=== PATIENT | male | born 1980 | race Caucasian/White ===

== ENCOUNTER 2017-05-16 18:02 | Emergency (ER) | payer OTHER ==
[~2017-05-16] VITALS: Ht 175.3 cm; Wt 75.0 kg
[2017-05-16] MEDS ORDERED: LISINOPRIL10 MG PO (18:34)
[2017-05-16] MEDS ORDERED: NORVASC10 M1 PO (18:35)
[2017-05-16] MEDS ORDERED: LEVOTHYROXIN125 MC1 PO (18:35)
[2017-05-16] MEDS ORDERED: WELLBUTRIN200 M1 PO (18:35)
[2017-05-16] MEDS ORDERED: ZYLOPRIM100 MG PO (18:36)
[2017-05-16] MEDS ORDERED: ZETIA10 MG PO (18:37)
[2017-05-16 18:40] LABS: HEMATOCRIT 33.9 % (39.0-50.0); HEMOGLOBIN 11.1 g/dl (14.0-18.0); IMMATURE GRANULOCYTES 0.2 % (0.0-1.0); MEAN CORPUSCULAR HGB 31.1 pG CALC (26.0-32.0); MEAN CORPUSCULAR HGB CONC 32.7 g/L CALC (32.0-36.0); NEUT# 6.58 thou/uL (1.82-7.42); RED BLOOD COUNT 3.57 mill/uL (4.70-6.10); RED CELL DISTRI WIDTH 12.9 % (11.5-15.5)
[2017-05-16 18:54] LABS: ALBUMIN 4.5 g/dL (3.2-5.0); BILIRUBIN, TOTAL 0.3 mg/dL (0.0-1.4); CALCIUM 9.4 mg/dL (8.4-10.2); CREATININE 3.4 mg/dL (0.7-1.3); TOTAL PROTEIN 7.1 g/dL (6.3-8.2)
[2017-05-16 19:01] LABS: POTASSIUM 5.6 mmol/l (3.5-5.1)
[2017-05-16 20:49] VITALS: BP 132/84
== END 2017-05-16 20:49 | disposition home or self-care (01) | DRG 684 ==
LOC: ED 18:02
PROVIDERS: Emergency Medicine
DX: I12.9 Hypertensive chronic kidney disease with stage 1 through stage 4 chronic kidney disease, or unspecified chronic kidney disease (principal); E87.5 Hyperkalemia; N18.9 Chronic kidney disease, unspecified

== ENCOUNTER 2017-05-24 18:02 | Inpatient (IN) | payer OTHER ==
[~2017-05-24] VITALS: Ht 175.3 cm; Wt 73.2 kg
[~2017-05-24 18:02] MED LIST: LEVOTHYROXIN125 MC1 PO; LISINOPRIL10 MG PO; NORVASC10 M1 PO; WELLBUTRIN200 M1 PO; ZETIA10 MG PO; ZYLOPRIM100 MG PO
--- NOTE | 2017-05-24 18:22 | NUR ---
PT AMBULATED BACK TO WAITING ROOM UNTIL A ROOM OPENS UP FOR TREATMENT. PT IN STABLE CONDITION. CP RESOLVED FROM THIS AM.
--- NOTE | 2017-05-24 18:23 | NUR ---
EKG COMPLETED PRIOR TO TRIAGE.
--- NOTE | 2017-05-24 18:47 | NUR ---
PT AMBULATED TO ER ROOM 9 WITH A STEADY GAIT. PT CHANGED INTO GOWN & ON SECURITY SERGEANT.
--- NOTE | 2017-05-24 19:06 | NUR ---
RECEIVED REPORT, IN ROOM INTRODUCED SELF TO PT. PT. STATES HIS CP IS COMPLETLY RESOLVED.
[2017-05-24 19:52] LABS: HEMATOCRIT 32.3 % (39.0-50.0); HEMOGLOBIN 10.5 g/dl (14.0-18.0); IMMATURE GRANULOCYTES 0.2 % (0.0-1.0); MEAN CELL VOLUME 95.3 fL CALC (80.0-100.0); MEAN CORPUSCULAR HGB CONC 32.5 g/L CALC (32.0-36.0); NEUT# 2.58 thou/uL (1.82-7.42); RED BLOOD COUNT 3.39 mill/uL (4.70-6.10); RED CELL DISTRI WIDTH 12.3 % (11.5-15.5)
[2017-05-24 19:54] LABS: URINE BILIRUBIN - DIPSTICK NEGATIVE (NEGATIVE); URINE BLOOD DIPSTICK NEGATIVE (NEGATIVE); URINE COLOR YELLOW; URINE GLUCOSE - DIPSTICK NEGATIVE (NEGATIVE); URINE KETONE NEGATIVE (NEGATIVE); URINE LEUK ESTERASE NEGATIVE (NEGATIVE); URINE NITRITE - DIPSTICK NEGATIVE (Negative); URINE PROTEIN - DIPSTICK NEGATIVE (NEG-TRACE); URINE UROBILINOGEN - DIPSTICK 0.2 E.U./dL (0.2)
[2017-05-24 19:56] LABS: URINE CLARITY CLEAR
[2017-05-24 20:15] LABS: ALBUMIN 4.4 g/dL (3.2-5.0); ALKALINE PHOSPHATASE 46 u/l (38-126); ANION GAP 19 (6-22 (CALC)); BILIRUBIN, TOTAL 0.5 mg/dL (0.0-1.4); CALCIUM 9.3 mg/dL (8.4-10.2); CARBON DIOXIDE 21 mmol/l (22-30); CHLORIDE 108 mmol/l (95-108); CREATININE 4.1 mg/dL (0.7-1.3); GFR 17 ML/MIN (>=60 (CALC)); GFR FOR AFR.AMER. 20 ML/MIN (>=60 (CALC)); GLUCOSE 100 mg/dL (75-110); SGOT/AST 41 u/l (17-59); SGPT/ALT 46 u/l (21-72); SODIUM 142 mmol/l (137-146)
[2017-05-24 20:18] LABS: BUN/CREATININE RATIO 21 (12-20 (CALC))
[2017-05-24 20:19] LABS: BUN 87 mg/dL (9-20)
[2017-05-24 20:34] LABS: MYOGLOBIN 556 ng/mL (0 - 121)
--- NOTE | 2017-05-24 20:48 | NUR ---
MD IN ROOM TO DISCUSS CLINICAL FINDINGS WITH PT, AND ALSO MAKE HIM AWARE OF ADMISSION, VERBALIZED UNDERSTANDING.
--- NOTE | 2017-05-24 20:57 | NUR ---
iv and po meds given to pt. as per md order.
--- NOTE | 2017-05-24 21:30 | NUR ---
Admission Note Report Given to: IONA EARL Transported by: Wheelchair X Stretcher Transported with: X Nurse Transporter X Patent IV O2 X Office Specialist
--- NOTE | 2017-05-24 21:31 | NUR ---
PT. TAKEN TO MS FLOOR VIA STRETCHER. NO C/O IVF INFUSING WELL, NO REDNESS OR EDEMA NOTED.
[2017-05-24 21:35] VITALS: BP 111/63
--- NOTE | 2017-05-24 21:35 | NUR ---
PT TO ROOM 261 VIA STRETCHER ACCOMPANIED BY ER STAFF. AMBULATED TO BED WITHOUT DIFFICULTY
--- NOTE | 2017-05-24 21:45 | NUR ---
PT IS SITTING UP IN BED. PT IS ALERT AND ORIENTED X3. PERRLA. LUNGS ARE CLEAR. RESP ARE EVEN AND UNLABORED. TELE IN PLACE. HR REGULAR. PULSES PALPABLE THROUGHOUT.NO EDEMA NOTED. BS ACTIVE. REPORTS HAVING A BM TODAY. #20 RAC WITH MS @125ML/HR INFUSING WIHTOUT DIFFICULT. NO REDNESS OR EDEMA NOTED. WILL CONTINUE TO MONITOR
[2017-05-24] MEDS ORDERED: ULORIC40 MG PO (22:07)
--- NOTE | 2017-05-24 22:10 | NUR ---
PT DIAPHORETIC AND COMPLAINING OF DIZZINESS. BLOOD SUGAR 76. 2 OJS GIVEN AND A TURKEY SANDWICH. WILL RECHECK
--- NOTE | 2017-05-24 23:05 | NUR ---
ACCU CHECK 171. PT RESTING IN BED.
[2017-05-25] VITALS (7 sets, daily range): BP systolic 96–114; BP diastolic 59–65
--- NOTE | 2017-05-25 | NUR ---
PT RESTING IN BED WATCHING TB. RESP ARE EVEN AND UNLABORED. NO DISTRESS NOTED. NO CHANGE IN PT STATUS. WILL CONTINUE TO MONITOR.
[2017-05-25 00:12] LABS: CREATININE 3.9 mg/dL (0.7-1.3)
[2017-05-25 00:13] LABS: POTASSIUM 5.3 mmol/l (3.5-5.1)
--- NOTE | 2017-05-25 01:30 | NUR ---
ER CALLED AND STATED THAT PT IS SINUS MAN ON THE TELE. VS OBTAINED BP 95/65. HR 62. ACCU CHECK 104. WILL CONTINUE TO MONITOR.
--- NOTE | 2017-05-25 04:00 | NUR ---
PT RESTING IN BED WITH EYES CLOSED. RESP ARE EVEN AND UNLABORED. NO DISTRESS NOTED. NO CHANGE IN PT STATUS. WILL CONTINUE TO MONITOR
[2017-05-25 06:04] LABS: CALCIUM 9.1 mg/dL (8.4-10.2); CHOLESTEROL HDL RATIO 3.7 (<4.4 (CALC)); CREATININE 3.5 mg/dL (0.7-1.3); POTASSIUM 5.6 mmol/l (3.5-5.1)
--- NOTE | 2017-05-25 07:00 | NUR ---
BEDSIDE REPORT RECIEVED FROM MADY MONSON. PT AWAKE UPON ENTRY AND RESTING IN SUPINE POSITION. PT HAS NO COMPLAINTS OF PAIN AT THIS TIME. RESP EVEN AND UNLABORED. IV SIGHT APPEARS HEALTHY. SAFETY PRECAUTIONS IN PLACE. CALL LIGHT WITHIN REACH. WILL CONTINUE TO MONITOR HOURLY.
[2017-05-25] MEDS ORDERED: AMLODIPINE5 MG PO (07:58)
--- NOTE | 2017-05-25 10:04 | NUR ---
PT HAS A BP OF 109/63, HR OF 61. [facility] 0900 MED HELD, SPENCER TRAVIS NOTIFIED.
[2017-05-25 13:34] LABS: ALBUMIN 4.3 g/dL (3.2-5.0); CALCIUM 9.4 mg/dL (8.4-10.2); CREATININE 3.4 mg/dL (0.7-1.3)
[2017-05-25 13:35] LABS: POTASSIUM 6.3 mmol/l (3.5-5.1)
--- NOTE | 2017-05-25 15:14 | NUR ---
PT OFF FLOOR AT THIS TIME FOR US OF KIDNEY WITH STAFF VIA WHEELCHAIR.
--- NOTE | 2017-05-25 16:14 | NUR ---
PT BACK TO FLOOR WITH STAFF VIA WHEELCHAIR. PT RESTING IN BED. CALL LIGHT WITHIN REACH.
--- NOTE | 2017-05-25 20:20 | NUR ---
NOVULINR 6UNITS AND LASIX 60MG IV ORDER RECEIVED FROM DR. ATKINS, CALLED DR. ATKINS TO VERY THAT NO D50 IS ORDERED AT THIS TIME. HE STATES IF BS DROPS BELOW 80 THEN HE MAY GET AND AMP OF D50. ADMINISTERED INSULIN AND LASIX AT THIS TIME, WILL CONTINUE TO MONITOR.
--- NOTE | 2017-05-25 21:27 | NUR ---
ACCUCHECK 64, AMP OF D50 GIVEN IV AT THIS TIME.
--- NOTE | 2017-05-25 22:30 | NUR ---
ACCUCHECK 83, ORANGE JUICE PROVIDED. WILL CONTINUE TO MONITOR.
--- NOTE | 2017-05-25 23:50 | NUR ---
ACCUCHECK 134
--- NOTE | 2017-05-26 02:12 | NUR ---
RESTING WITH EYES CLOSED, ACCUCHECK 98. IV FLUIDS INFUSING TO LFA WITH NO COMPLICATIONS. CALL LIGHT IN REACH.
[2017-05-26 04:01] VITALS: BP 107/66
[2017-05-26 05:42] LABS: HEMATOCRIT 34.2 % (39.0-50.0); HEMOGLOBIN 11.3 g/dl (14.0-18.0); IMMATURE GRANULOCYTES 0.2 % (0.0-1.0); MEAN CELL VOLUME 95.3 fL CALC (80.0-100.0); MEAN CORPUSCULAR HGB 31.5 pG CALC (26.0-32.0); NEUT# 5.14 thou/uL (1.82-7.42); RED BLOOD COUNT 3.59 mill/uL (4.70-6.10); RED CELL DISTRI WIDTH 12.3 % (11.5-15.5)
[2017-05-26 06:01] LABS: CALCIUM 9.5 mg/dL (8.4-10.2); CREATININE 3.4 mg/dL (0.7-1.3); MAGNESIUM 1.2 mg/dL (1.6-2.3); POTASSIUM 5.3 mmol/l (3.5-5.1)
--- NOTE | 2017-05-26 06:22 | NUR ---
OOB TO BATHROOM VOIDING IN URINAL, ADMITS TO USING COMMODE AND FLUSHING ONCE DURING THE NIGHT. ASKED TO USE URINAL FOR ACCURATE I'S AND O'S. VOICES UNDERSTANDING.
--- NOTE | 2017-05-26 07:00 | NUR ---
REPORT RECIEVED FROM YELENA PITTMAN. PT AWAKE UPON ENTRY. PT HAS NO COMPLAINTS OF PAIN. RESP EVEN AND UNLABORED. SAFETY PRECAUTIONS IN PLACE. CALL LIGHT WITHIN REACH. WILL CONTINUE TO MONITOR.
[2017-05-26 08:00] VITALS: BP 114/68
--- NOTE | 2017-05-26 10:20 | NUR ---
PT RESTING IN SUPINE POSITION IN BED WATCHING TV. NO COMPLAINTS OF PAIN. TELE IN PLACE. IV SIGHT APPEARS HEALTHY. CALL LIGHT WITHIN REACH.
[2017-05-26 11:30] VITALS: BP 114/56
--- NOTE | 2017-05-26 12:30 | NUR ---
Discharge instructions given. Patient verbalizes understanding of same. Discharged in stable condition via Wheelchair to Home with staff. All belongings sent with pt.
== END 2017-05-26 12:20 | disposition home or self-care (01) | DRG 683 ==
LOC: ED 18:02 → ED-I 20:00 → ED 20:55 → MS2 20:56
PROVIDERS: Emergency Medicine; Internal Medicine Nephrology; Nurse Practitioner Family; ADMIT Internal Medicine; ATTEND Internal Medicine
DX: N17.9 Acute kidney failure, unspecified (principal); G93.1 Anoxic brain damage, not elsewhere classified; I95.9 Hypotension, unspecified; E87.2 Acidosis; E87.5 Hyperkalemia; R07.9 Chest pain, unspecified; N02.8 Recurrent and persistent hematuria with other morphologic changes; I10 Essential (primary) hypertension; N18.4 Chronic kidney disease, stage 4 (severe); F98.8 Other specified behavioral and emotional disorders with onset usually occurring in childhood and adolescence; E03.9 Hypothyroidism, unspecified; M10.9 Gout, unspecified; E86.0 Dehydration; F41.1 Generalized anxiety disorder; D63.1 Anemia in chronic kidney disease; T46.4X5A Adverse effect of angiotensin-converting-enzyme inhibitors, initial encounter
CPT/HCPCS: G0378; J3475